=== PATIENT | female | born 1970 | race Two or more races ===

== ENCOUNTER 2024-09-24 20:47 | Emergency (ER) | payer SELFPAY ==
[~2024-09-24] VITALS: Ht 149.9 cm; Wt 84.1 kg
[2024-09-24 20:58] VITALS: BP 134/85; PULSE 86; RESP 18; TEMP 98.1; O2SAT 100
== END 2024-09-24 21:58 | disposition left against medical advice (07) ==
LOC: EMS 20:47
DX: M25.531 Pain in right wrist (principal); Z53.21 Procedure and treatment not carried out due to patient leaving prior to being seen by health care provider